=== PATIENT | male | born 1955 | race Caucasian/White ===

== ENCOUNTER 2018-11-26 19:26 | Emergency (ER) | payer OTHER ==
[~2018-11-26] VITALS: Ht 162.6 cm; Wt 81.1 kg
[2018-11-26 19:36] VITALS: Ht 162.6 cm; Wt 81.1 kg
[2018-11-27] MEDS ORDERED: hydrALAzine 20 MG INJ IV ONE (00:30)
[2018-11-27] MEDS ORDERED: HYDROCODONE/APAP (10/325) TAB PO ONE (00:30)
[2018-11-27] MEDS ORDERED: TRAM50TA2 PO (01:44)
[2018-11-27] MEDS ORDERED: HYDR-3672 PO (01:44)
[2018-11-27 02:54] VITALS: BP 154/91; PULSE 92; RESP 18
--- NOTE | 2018-12-17 02:01 | ERD ---
ER Documentation Chief Complaint Chief Complaint htn, referred by pmd, also c/o pain left foot, dx fx HPI This is a very pleasant 18-year-old male comes in with a symptom medic high blood pressure. Patient denies chest pain nausea vomiting fevers chills or shortness of breath. Any headache. Denies any other current issues. ROS All systems reviewed and are negative except as per history of present illness. Medications Home Meds Active Scripts Tramadol HCl (Tramadol HCl) 50 Mg Tablet, 50 MG PO Q4 PRN for PAIN, #20 TAB Prov:MARY TANG 11/27/18 Hydralazine Hcl* (Hydralazine Hcl*) 50 Mg Tab, 50 MG PO Q6H PRN for ELEVATED BLOOD PRESSURE, #60 TAB Prov:MARY TANG 11/27/18 Allergies Allergies: Coded Allergies: No Known Allergy (Verified Allergy, Unknown, 06/03/08) PMhx/Soc Medical and Surgical Hx: pt denies Surgical Hx History of Surgery: No Anesthesia Reaction: No Hx Neurological Disorder: Yes (NEUROPATHY, CVA) Hx Respiratory Disorders: No Hx Cardiac Disorders: Yes (HTN, HYPERLIPIDEMIA) Hx Psychiatric Problems: No Hx Miscellaneous Medical Probl: No Hx Alcohol Use: No Hx Substance Use: No Hx Tobacco Use: No Smoking Status: Never smoker Physical Exam Physical Exam Const: No acute distress Head: Atraumatic Eyes: Normal Conjunctiva ENT: Normal External Ears, Nose and Mouth. Neck: Full range of motion. No meningismus. Resp: Clear to auscultation bilaterally Cardio: Regular rate and rhythm, no murmurs Abd: Soft, non tender, non distended. Normal bowel sounds Skin: No petechiae or rashes Back: No midline or flank tenderness Ext: No cyanosis, or edema Neur: Awake and alert Psych: Normal Mood and Affect Results 24 hrs Laboratory Tests Test 11/27/18 00:38 White Blood Count 10.8 10^3/ul Red Blood Count 4.76 10^6/ul Hemoglobin 14.8 g/dl Hematocrit 42.0 % Mean Corpuscular Volume 88.2 fl Mean Corpuscular Hemoglobin 31.1 pg Mean Corpuscular Hemoglobin Concent 35.2 g/dl Red Cell Distribution Width 11.8 % Platelet Count 224 10^3/UL Mean Platelet Volume 10.0 fl Immature Granulocytes % 0.600 % Neutrophils % 46.4 % Lymphocytes % 24.0 % Monocytes % 7.3 % Eosinophils % 20.8 % Basophils % 0.9 % Nucleated Red Blood Cells % 0.0 /100WBC Immature Granulocytes # 0.060 10^3/ul Neutrophils # 5.0 10^3/ul Lymphocytes # 2.6 10^3/ul Monocytes # 0.8 10^3/ul Eosinophils # 2.2 10^3/ul Basophils # 0.1 10^3/ul Nucleated Red Blood Cells # 0.0 10^3/ul Sodium Level 137 mmol/L Potassium Level 3.4 mmol/L Chloride Level 93 mmol/L Carbon Dioxide Level 30 mmol/L Anion Gap 14 Blood Urea Nitrogen 13 mg/dl Creatinine 0.79 mg/dl Est Glomerular Filtrat Rate mL/min > 60 mL/min Glucose Level 321 mg/dl Calcium Level 9.2 mg/dl Total Bilirubin 0.2 mg/dl Direct Bilirubin 0.00 mg/dl Indirect Bilirubin 0.2 mg/dl Aspartate Amino Transf (AST/SGOT) 20 IU/L Alanine Aminotransferase (ALT/SGPT) 24 IU/L Alkaline Phosphatase 139 IU/L Troponin I < 0.012 ng/ml B-Type Natriuretic Peptide 83 PG/ML Total Protein 7.8 g/dl Albumin 4.1 g/dl Globulin 3.70 g/dl Albumin/Globulin Ratio 1.10 Current Medications Medications Dose Sig/Kat Start Time Status Last (Trade) Ordered Route PRN Stop Time Admin Dose Reason Admin 1 tab ONCE ONCE 11/27/18 DC 11/27/18 Acetaminophen PO 00:30 00:44 / 11/27/18 00:31 Hydrocodone Bitart ([place] (10/325)) Hydralazine 20 mg ONCE ONCE 11/27/18 DC 11/27/18 HCl IV 00:30 00:45 (Apresoline) 11/27/18 00:31 Procedures/MDM Reason for course: Patient evolving changes. Placed in bed from evaluation. Had presented his current mental condition with activity. Had blood work done. A stat EKG and stat chest x-ray. Diagnostic data: EKG: Rate/Rhythm: [Normal Sinus Rhythm] QRS, ST, T-waves: [No changes consistent w/ acute ischemia] Impression: [No evidence of ischemia or arrhythmia] Chest X-ray 1V Interpreted by me: Soft Tissue: No acute abnormali ties Bones: No acute abnormalities Mediastinum/Cardiac Silhouette/Lungs: [No acute abnormalities] Medical decision making: Patient's blood pressure was elevated (>120/80) but appears stable without evidence of hypertension emergency or urgency. The patient was counseled about the risks of hypertension and urged to pursue outpatient monitoring and therapy within a week with their primary care physician. Departure Diagnosis: Primary Impression: Hypertension Hypertension type: unspecified Qualified Codes: I10 - Essential (primary) hypertension Condition: Stable Patient Instructions: High Blood Pressure (Hypertension), Fracture, Foot MARY TANG Dec 17, 2018 02:01
== END 2018-11-27 02:56 | disposition home or self-care (01) ==
LOC: E/R 19:26
DX: I10 Essential (primary) hypertension (principal); Z86.73 Personal history of transient ischemic attack (TIA), and cerebral infarction without residual deficits
CPT/HCPCS: 36415; 71045; 73630; 80053; 83880; 84484; 85025; 93005; 96374; J0360; Z7502; Z7610